=== PATIENT | male | born 1945 | race Caucasian/White ===

== ENCOUNTER → 2016-11-19 | Outpatient (CLI) | payer BC ==
[~2016-11-19] MED LIST: ACET-1256 PO; ALL180 OR; ASPEC81 PO; ATOR-26 PO; CALCIUM + D600 M1 PO; CLOT1CRE47 TOP; FLNIN NAE; GLC/500 PO; HYDR25TA4 PO; ISOS30TA3 PO; LISI-461 OR; METO1TAB69 PO; MULTI VITAMIMINERALS PO; NABU500T3 PO; NTRGSL/4 UT; PANT40TA PO
--- NOTE | 2016-11-19 12:08 | DIAGNOSTIC IMAGING REPORT ---
TWO VIEW CHEST CLINICAL HISTORY: Bronchitis. FINDINGS: PA and lateral chest radiographs are compared to study dated to. The cardiomediastinal silhouette is unremarkable. There is atherosclerotic calcification of the thoracic aorta. Chronic interstitial thickening and scattered calcified granulomas are similar to previous. No airspace consolidation or pleural effusion is seen. There is no pneumothorax. The skeletal structures are osteopenic. The bony thorax appears intact. IMPRESSION: No active disease in the chest. Electronically signed by: David Meredith M.D. 11/19/2016 12:07 PM Dictated Date/Time: 11/19/2016 12:06 PM
== END | disposition home or self-care (01) ==
LOC: C.RADBC 11:53
PROVIDERS: ATTEND Internal Medicine Geriatric Medicine
DX: J20.9 Acute bronchitis, unspecified (principal)

== ENCOUNTER → 2016-11-27 | Outpatient (CLI) | payer BC ==
[2016-11-27 14:36] LABS: BASO % 0.3 %; BASO ABS # 0.04 K/uL (0-0.2); COMPLETE YES; EOS % 2.7 %; HEMATOCRIT 45.9 % (42-52); LYMPH % 20.6 %; LYMPH ABS # 2.78 K/uL (1.2-3.4); MEAN CELL VOLUME 96.8 fL (80-100); MEAN CORPUSCULAR HEMOGLOBIN 33.5 pg (25-34); MEAN CORPUSCULAR HGB CONC 34.6 g/dl (32-36); MEAN PLATELET VOLUME 13.6 fL (7.4-10.4); MONO % 7.2 %; NEUT % 68.2 %; PLATELET COUNT 199 K/uL (130-400); RED BLOOD COUNT 4.74 M/uL (4.7-6.1); WHITE BLOOD COUNT 13.51 K/uL (4.8-10.8)
[2016-11-27 14:45] LABS: ESTIMATED AVERAGE GLUCOSE 123 mg/dl; HA1C FLAG Normal (Normal)
[2016-11-27 15:20] LABS: ALT/SGPT 31 U/L (12-78); BLOOD UREA NITROGEN 19 mg/dl (7-18); BUN/CREATININE RATIO 19.6 (10-20); CALCIUM 9.3 mg/dl (8.5-10.1); CARBON DIOXIDE 27 mmol/L (21-32); CHLORIDE 107 mmol/L (98-107); CREATININE 0.99 mg/dl (0.60-1.40); GLUCOSE 81 mg/dl (70-99); POTASSIUM 4.3 mmol/L (3.5-5.1); SODIUM 143 mmol/L (136-145)
[2016-11-27 15:23] LABS: ALB/GLOB RATIO 1.2 (0.9-2); ALKALINE PHOSPHATASE 61 U/L (45-117); AST/SGOT 25 U/L (15-37)
== END | disposition home or self-care (01) ==
LOC: C.LAB 13:31
PROVIDERS: ATTEND Internal Medicine Geriatric Medicine
DX: I10 Essential (primary) hypertension (principal); E11.9 Type 2 diabetes mellitus without complications; E78.5 Hyperlipidemia, unspecified; I25.10 Atherosclerotic heart disease of native coronary artery without angina pectoris

== ENCOUNTER → 2017-02-05 | Outpatient (CLI) | payer BC ==
[~2017-02-05] MED LIST changes: +METO100T44 PO; -METO1TAB69 PO
[2017-02-05 13:14] LABS: LYME DISEASE AB IGG NEG (NEG)
[2017-02-05 13:16] LABS: LYME DISEASE AB IGM EQUIVOCAL (NEG)
[2017-02-08 23:58] LABS: 18KDIGG BAND NONREACTIVE (NONREACTIVE); 23KDIGG BAND NONREACTIVE (NONREACTIVE); 23KDIGM BAND NONREACTIVE (NONREACTIVE); 28KDIGG BAND NONREACTIVE (NONREACTIVE); 30KDIGG BAND NONREACTIVE (NONREACTIVE); 39KDIGG BAND NONREACTIVE (NONREACTIVE); 39KDIGM BAND NONREACTIVE (NONREACTIVE); 41KDIGG BAND NONREACTIVE (NONREACTIVE); 41KDIGM BAND NONREACTIVE (NONREACTIVE); 45KDIGG BAND NONREACTIVE (NONREACTIVE); 58KDIGG BAND NONREACTIVE (NONREACTIVE); 66KDIGG BAND NONREACTIVE (NONREACTIVE); 93KDIGG BAND NONREACTIVE (NONREACTIVE)
== END | disposition home or self-care (01) ==
LOC: C.LABPBG 10:23
PROVIDERS: ATTEND Internal Medicine Geriatric Medicine
DX: E11.40 Type 2 diabetes mellitus with diabetic neuropathy, unspecified (principal); R20.0 Anesthesia of skin

== ENCOUNTER → 2017-06-12 | Outpatient (CLI) | payer BC ==
[~2017-06-12] MED LIST changes: -METO100T44 PO; +METO1TAB69 PO
[2017-06-12 17:33] LABS: BASO % 0.4 %; BASO ABS # 0.04 K/uL (0-0.2); COMPLETE YES; EOS % 5.1 %; HEMATOCRIT 45.2 % (42-52); IG% 0.6 %; LYMPH % 24.8 %; LYMPH ABS # 2.41 K/uL (1.2-3.4); MEAN CELL VOLUME 97.8 fL (80-100); MEAN CORPUSCULAR HEMOGLOBIN 33.8 pg (25-34); MEAN CORPUSCULAR HGB CONC 34.5 g/dl (32-36); MEAN PLATELET VOLUME 13.5 fL (7.4-10.4); MONO % 8.1 %; PLATELET COUNT 202 K/uL (130-400); RED BLOOD COUNT 4.62 M/uL (4.7-6.1); WHITE BLOOD COUNT 9.71 K/uL (4.8-10.8)
[2017-06-12 17:46] LABS: ALT/SGPT 35 U/L (12-78); AST/SGOT 41 U/L (15-37); BLOOD UREA NITROGEN 15 mg/dl (7-18); BUN/CREATININE RATIO 13.2 (10-20); CALCIUM 8.9 mg/dl (8.5-10.1); CARBON DIOXIDE 29 mmol/L (21-32); CHLORIDE 108 mmol/L (98-107); CHOLESTEROL 116 mg/dl (0-200); GLUCOSE 91 mg/dl (70-99); POTASSIUM 4.1 mmol/L (3.5-5.1); SODIUM 142 mmol/L (136-145)
[2017-06-12 17:49] LABS: ALB/GLOB RATIO 1.3 (0.9-2); ALKALINE PHOSPHATASE 62 U/L (45-117); CHOLESTEROL/HDL RATIO 2.5; HDL CHOLESTEROL 47 mg/dl; LDL CHOLESTEROL CALCULATED 45 mg/dl; TRIGLYCERIDES 120 mg/dl (0-150); VERY LOW DENSITY LIPOPROT CALC 24 mg/dl
[2017-06-13 06:57] LABS: ESTIMATED AVERAGE GLUCOSE 123 mg/dl; HA1C FLAG Normal (Normal)
== END | disposition home or self-care (01) ==
LOC: C.LABPBG 13:05
PROVIDERS: ATTEND Internal Medicine Geriatric Medicine
DX: I10 Essential (primary) hypertension (principal); E11.9 Type 2 diabetes mellitus without complications; I25.10 Atherosclerotic heart disease of native coronary artery without angina pectoris; E78.5 Hyperlipidemia, unspecified

== ENCOUNTER → 2017-11-22 | Outpatient (CLI) | payer BC ==
[~2017-11-22] MED LIST changes: +METO100T44 PO; -METO1TAB69 PO
[2017-11-22 12:08] LABS: BASO % 0.2 %; BASO ABS # 0.03 K/uL (0-0.2); EOS % 2.3 %; EOS ABS # 0.28 K/uL (0-0.5); HEMATOCRIT 45.3 % (42-52); HEMOGLOBIN 15.6 g/dL (14.0-18.0); IG# 0.08 K/uL (0.00-0.02); LYMPH % 18.2 %; LYMPH ABS # 2.24 K/uL (1.2-3.4); MEAN CELL VOLUME 99.6 fL (80-100); MEAN CORPUSCULAR HEMOGLOBIN 34.3 pg (25-34); MEAN CORPUSCULAR HGB CONC 34.4 g/dl (32-36); MEAN PLATELET VOLUME 13.2 fL (7.4-10.4); MONO % 7.1 %; MONO ABS # 0.87 K/uL (0.11-0.59); NEUT % 71.5 %; NEUT ABS # 8.79 K/uL (1.4-6.5); PLATELET COUNT 238 K/uL (130-400); RED CELL DISTRIBUTION WIDTH CV 15.4 % (11.5-14.5); RED CELL DISTRIBUTION WIDTH SD 55.5 fL (36.4-46.3); WHITE BLOOD COUNT 12.29 K/uL (4.8-10.8)
[2017-11-22 12:31] LABS: HEMOGLOBIN A1C 5.9 % (4.5-5.6)
[2017-11-22 12:34] LABS: ALBUMIN 3.4 gm/dl (3.4-5.0); ALT/SGPT 26 U/L (12-78); AST/SGOT 24 U/L (15-37); BLOOD UREA NITROGEN 16 mg/dl (7-18); CALCIUM 9.1 mg/dl (8.5-10.1); CARBON DIOXIDE 26 mmol/L (21-32); GLUCOSE 138 mg/dl (70-99); POTASSIUM 3.9 mmol/L (3.5-5.1); SODIUM 139 mmol/L (136-145)
[2017-11-22 12:45] LABS: ALKALINE PHOSPHATASE 68 U/L (45-117); TOTAL PROTEIN 6.9 gm/dl (6.4-8.2)
== END | disposition home or self-care (01) ==
LOC: C.LABPBG 08:57
PROVIDERS: ATTEND Internal Medicine Geriatric Medicine
DX: E11.9 Type 2 diabetes mellitus without complications (principal); E78.5 Hyperlipidemia, unspecified; I25.10 Atherosclerotic heart disease of native coronary artery without angina pectoris; E55.9 Vitamin D deficiency, unspecified; M25.561 Pain in right knee; M25.562 Pain in left knee; M47.819 Spondylosis without myelopathy or radiculopathy, site unspecified; Z79.1 Long term (current) use of non-steroidal anti-inflammatories (NSAID)

== ENCOUNTER → 2018-05-13 | Outpatient (CLI) | payer BC ==
--- NOTE | 2018-05-13 10:01 | DIAGNOSTIC IMAGING REPORT ---
CHEST 2 VIEWS ROUTINE CLINICAL HISTORY: Bronchitis. COMPARISON STUDY: Chest radiograph November 19, 2016. FINDINGS: Lung volumes are normal. No pneumothorax or pleural effusion is noted. There is no consolidation or evidence for pulmonary edema. A nodular density overlying the anterior left fourth rib and left midlung is unchanged from earlier exams. This is benign given stability. IMPRESSION: No acute cardiopulmonary findings. Electronically signed by: Tay James M.D. 05/13/2018 9:59 AM Dictated Date/Time: 05/13/2018 9:48 AM
[2018-05-13 12:45] LABS: BASO % 0.4 %; BASO ABS # 0.06 K/uL (0-0.2); EOS % 3.8 %; EOS ABS # 0.53 K/uL (0-0.5); HEMATOCRIT 45.4 % (42-52); HEMOGLOBIN 15.2 g/dL (14.0-18.0); IG# 0.13 K/uL (0.00-0.02); LYMPH % 12.2 %; LYMPH ABS # 1.68 K/uL (1.2-3.4); MEAN CELL VOLUME 97.6 fL (80-100); MEAN CORPUSCULAR HEMOGLOBIN 32.7 pg (25-34); MEAN CORPUSCULAR HGB CONC 33.5 g/dl (32-36); MEAN PLATELET VOLUME 12.7 fL (7.4-10.4); MONO % 7.1 %; MONO ABS # 0.98 K/uL (0.11-0.59); NEUT % 75.6 %; NEUT ABS # 10.42 K/uL (1.4-6.5); PLATELET COUNT 308 K/uL (130-400); RED CELL DISTRIBUTION WIDTH SD 52.7 fL (36.4-46.3)
[2018-05-13 13:04] LABS: HEMOGLOBIN A1C 6.2 % (4.5-5.6)
[2018-05-13 13:14] LABS: ALBUMIN 3.5 gm/dl (3.4-5.0); ALKALINE PHOSPHATASE 72 U/L (45-117); ALT/SGPT 28 U/L (12-78); AST/SGOT 27 U/L (15-37); BLOOD UREA NITROGEN 16 mg/dl (7-18); CALCIUM 9.1 mg/dl (8.5-10.1); CARBON DIOXIDE 27 mmol/L (21-32); CHOLESTEROL 99 mg/dl (0-200); CREATININE 0.92 mg/dl (0.60-1.40); GLUCOSE 102 mg/dl (70-99); LDL CHOLESTEROL CALCULATED 48 mg/dl; POTASSIUM 4.1 mmol/L (3.5-5.1); SODIUM 143 mmol/L (136-145); TOTAL PROTEIN 6.9 gm/dl (6.4-8.2)
== END | disposition home or self-care (01) ==
LOC: C.RADBC 09:26
PROVIDERS: ATTEND Internal Medicine Rheumatology
DX: E11.9 Type 2 diabetes mellitus without complications (principal); E78.5 Hyperlipidemia, unspecified; I10 Essential (primary) hypertension; I25.10 Atherosclerotic heart disease of native coronary artery without angina pectoris; M47.819 Spondylosis without myelopathy or radiculopathy, site unspecified; M17.10 Unilateral primary osteoarthritis, unspecified knee; Z79.1 Long term (current) use of non-steroidal anti-inflammatories (NSAID); J40 Bronchitis, not specified as acute or chronic

== ENCOUNTER 2019-01-06 14:59 | Inpatient (IN) ==
[2019-01-06] MEDS ORDERED: SODIUM CHLORIDE 0.9% 1000ML 1,000 ML IV ONE (15:41)
[2019-01-06] MEDS ORDERED: MECLIZINE HCL 25 MG TAB PO STA (15:41)
[2019-01-06] MEDS ORDERED: ACETAMINOPHEN 500 MG TAB PO STA (15:41)
--- NOTE | 2019-01-06 16:02 | XRay Report ---
SINGLE VIEW CHEST CLINICAL HISTORY: Dizziness. FINDINGS: An AP, portable, upright chest radiograph is compared to study dated 08/26/2018. The examina tion is degraded by portable technique and patient rotation. The cardiomediastinal silhouette is unr emarkable, noting atherosclerotic calcification of the thoracic aorta. There is mild bibasilar atelec tasis. The lungs and pleural spaces are otherwise clear. No pneumothorax is seen. The skeletal struct ures are osteopenic. The bony thorax is grossly intact. There is chronic widening at the right acromi oclavicular joint. Arthritic change is seen in the shoulders. IMPRESSION: No active disease in the chest. Electronically signed by: David Meredith M.D. 01/06/2019 4:01 PM
[2019-01-06 16:18] LABS: iSTAT Creatinine 0.9 mg/dl (0.6-1.3); iSTAT Ionized Calcium 1.22 mmol/l (1.12-1.32); iSTAT Potassium 3.8 mEq/L (3.3-5.0)
[2019-01-06 16:19] LABS: Basophils # (auto) 0.04 K/uL (0-0.2); Basophils % (auto) 0.2 %; Eosinophils # (auto) 0.22 K/uL (0-0.5); Eosinophils % (auto) 1.3 %; Hematocrit (blood only) 49.6 % (42-52); Hemoglobin 16.8 g/dL (14.0-18.0); Immature Granulocytes # (auto) 0.06 K/uL (0.00-0.02); Immature Granulocytes % (auto) 0.4 %; Lymphocytes # (auto) 1.67 K/uL (1.2-3.4); Lymphocytes % (auto) 9.8 %; Mean Corpuscular Hgb Conc 33.9 g/dL (32-36); Mean Corpuscular Volume 93.8 fL (80-100); Mean Platelet Volume 13.2 fL (7.4-10.4); Monocytes # (auto) 0.84 K/uL (0.11-0.59); Monocytes % (auto) 4.9 %; Neutrophils # (auto) 14.27 K/uL (1.4-6.5); Neutrophils % (auto) 83.4 %; Platelet Count 261 K/uL (130-400); RDW Coefficient of Variation 15.1 % (11.5-14.5); RDW Standard Deviation 51.3 fL (36.4-46.3); Red Blood Count 5.29 M/uL (4.7-6.1)
[2019-01-06 16:26] LABS: INR 1.2 (0.9-1.1); Prothrombin Time 11.7 Seconds (9.0-12.0)
[2019-01-06 16:28] LABS: Alanine Aminotransferase 28 U/L (12-78); Albumin Level 3.8 gm/dl (3.4-5.0); Aspartate Aminotransferase 27 U/L (15-37); BUN Creatinine Ratio 18.6 (10-20); Blood Urea Nitrogen 19 mg/dl (7-18); Calcium 9.2 mg/dl (8.5-10.1); Carbon Dioxide 27 mmol/L (21-32); Chloride 110 mmol/L (98-107); Creatinine Clr Calc Pharmacy 62.4 ml/min; Est GFR (African American) 86.8; Est GFR (Non-African American) 74.9; Glucose 111 mg/dl (70-99); Magnesium 1.9 mg/dl (1.8-2.4); Potassium 3.9 mmol/L (3.5-5.1); Sodium 144 mmol/L (136-145)
[2019-01-06 16:33] LABS: Albumin Globulin Ratio 1.2 (0.9-2); Alkaline Phosphatase 75 U/L (45-117); Bilirubin,Total 1.3 mg/dl (0.2-1); Creatine Kinase MB < 1.0 ng/ml (0.5-3.6); Globulin 3.1 gm/dl (2.5-4.0); Total Protein 6.9 gm/dl (6.4-8.2); Troponin I 0.016 ng/ml (0-0.045)
[2019-01-06] MEDS ORDERED: OPTIRAY 320 125ml IV PRN (16:40)
--- NOTE | 2019-01-06 16:56 | CT Scan Report ---
CT OF THE HEAD WITHOUT CONTRAST CLINICAL HISTORY: Stroke evaluation. Headache. COMPARISON STUDY: No previous studies for comparison. TECHNIQUE: Helical axial images of the head were obtained without IV contrast. Automated exposure con trol was utilized for the study. A dose lowering technique was utilized adhering to the principles o f ALARA. FINDINGS: No acute intracranial hemorrhage, midline shift or mass effect is present. Ventricular syst em is normal for age. Basilar cisterns are patent. There are no extra-axial collections. White matter hypodensity suggests small vessel disease. There is mild bilateral basal ganglia calcification. Ther e are no findings to suggest acute dural sinus thrombosis or acute territorial infarct. There is no c alvarial fracture. 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 There are po stoperative findings within the sinuses. There is mild sinus mucosal thickening. There is no evidence for acute sinusitis. IMPRESSION: No acute intracranial findings. Electronically signed by: Tay James M.D. 01/06/2019 4:55 PM
--- NOTE | 2019-01-06 17:01 | CT Scan Report ---
CT ANGIOGRAPHY OF THE NECK WITH CONTRAST CLINICAL HISTORY: Headache. COMPARISON STUDY: No previous studies for comparison. Technique: CT angiography of the carotid and vertebral arteries was obtained using Traitify 320 IV and 3D reconstruction on an independent workstation. NASCET criteria was utilized. Automated exposure c ontrol was utilized for the study. A dose lowering technique was utilized adhering to the principles of ALARA. CT DOSE: 1037.51 mGy.cm Findings: The left vertebral artery is dominant. There is mild plaque within the left vertebral arter y without evidence for stenosis. There is no dissection within this vessel. The right vertebral arter y is somewhat diminutive. There is extensive atherosclerotic plaque within the proximal right vertebr al artery with suspected severe stenosis. There is mild plaque within the bilateral common carotid an d internal carotid arteries without hemodynamically significant stenosis. There is at least moderate stenosis at the origin of the left external carotid artery. The CTA of the head will be reported sepa rately. There is no cervical lymphadenopathy. Lung apices are clear. There is no cervical spine fract ure. IMPRESSION: 1. No significant stenosis within the bilateral common carotid or internal carotid arteries. 2. Moderate stenosis of the proximal left external carotid artery. 3. Dominant, patent left vertebral artery. Severe stenosis at the origin of the right vertebral arter y. Electronically signed by: Tay James M.D. 01/06/2019 5:00 PM
--- NOTE | 2019-01-06 17:07 | CT Scan Report ---
CT ANGIOGRAM OF THE BRAIN CLINICAL HISTORY: Headache. COMPARISON STUDY: Unenhanced CT of the brain performed concurrently on 01/06/2019. TECHNIQUE: Following the IV administration of 118 cc of Optiray 320, CT angiogram of the brain was pe rformed from the skull base to the vertex. Images are reviewed in the axial, sagittal, and coronal pl anes. 3-D MIPS images are created and assessed. IV contrast was administered without complication. A dose lowering technique was utilized adhering to the principles of ALARA. FINDINGS: Brain parenchyma: There is age-related involutional change noting mild subcortical and periventricula r microangiopathic disease. There is no hemorrhage, mass effect, or evidence of acute territorial isc hemia by CT criteria. There is no evidence of enhancing mass lesion on the angiogram phase images. No extra-axial fluid collection is seen. Cruz-white matter differentiation is preserved. Ventricles, sulci, and cisterns: Prominent secondary to involutional change. CT angiogram of the brain: There is atherosclerotic calcification of the cavernous carotid and verteb ral arteries. The [place] is developmentally complete. The internal carotid arteries are wi oneil patent, as are the anterior and middle cerebral arteries. The vertebrobasilar system and posteri or cerebral arteries are widely patent. The left vertebral artery is dominant. There is no aneurysm, high-grade stenosis, or focal vessel cutoff identified throughout the intracranial circulation. Dural sinuses: Clear as visualized. Orbits: The bony orbits are intact. The orbital contents are normal as visualized, noting bilateral o cular lens implants. Sinuses and mastoids: There is evidence of previous paranasal sinus surgery. Trace mucosal thickening is noted in the ethmoid resection cavity and the frontal sinuses. There is also trace mucosal thicke venita in the right maxillary antrum. Minimal fluid is seen within the right sphenoid sinus. There is a trace left mastoid effusion. The right mastoid air cells are well pneumatized. 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 No acute calvarial ab normality is seen. IMPRESSION: 1. There is no hemorrhage, mass effect, or evidence of acute territorial ischemia by CT criteria on t his angiographic phase examination. 2. Unremarkable CT angiogram of the brain. Electronically signed by: David Meredith M.D. 01/06/2019 5:06 PM
[2019-01-06] MEDS ORDERED: DEXAMETHASONE **PF** INJ 10 MG/ML VIAL IV ONE (17:24)
[2019-01-06] MEDS ORDERED: PROCHLORPERAZINE 5 MG in SYRINGE 4 ML IV ONE (17:24)
[2019-01-06] MEDS ORDERED: PROCHLORPERAZINE 5 MG/ML 2 ML VIAL ONE (17:31)
[2019-01-06] MEDS ORDERED: XYLOCAINE 1%/SOD BICARB 20 ML VIAL INFIL ONE (17:42)
[2019-01-06] MEDS ORDERED: VANCOMYCIN CONSULT ACTIVE PRN ×2 (17:52→20:09)
[2019-01-06] MEDS ORDERED: cefTRIAXone SODIUM 2,000 MG in DEXTROSE 5% 50 ML IV STA (17:52)
[2019-01-06] MEDS ORDERED: VANCOMYCIN HCL 1,000 MG/270 ML BAG IV STA (17:52)
--- NOTE | 2019-01-06 18:09 | Emergency Department Note ---
ED Visit Note I was asked by Dr. Bartholomew to perform lumbar puncture of this patient. Please see his dictation for full HPI, diagnostics and ED course. Lumbar Puncture Indication: Confusion, headache. Verbal consent was obtained after the risks and benefits were explained, including but not limited to headache, bleeding/clotting, scarring, infection, pain, and bone/joint/nerve damage. At this time, the risks of the procedure are less than the risks of NOT performing the procedure. A time out was taken and the correct patient and site identified. The patient was placed in the sitting position and the back was prepped with betadine and draped in the standard fashion. The L3 intervertebral space was identified, anesthetized locally with 1% lidocaine without epinephrine, and the spinal needle was inserted through the skin with the bevel parallel to the dural fibers. The needle was carefully advanced into the lumbar cistern and 4 tubes of clear CSF was obtained. The stylet was replaced and the needle was removed. A bandaid was placed and the patient was placed in the supine position. The patient tolerated the procedure well and there were no complications. : Headache Qualifiers: Headache type: unspecified Headache chronicity pattern: unspecified pattern Intractability: not intractable Qualified Code(s): R51 - Headache Altered mental status Qualifiers: Altered mental status type: unspecified Qualified Code(s): R41.82 - Altered mental status, unspecified
[2019-01-06] MEDS ORDERED: MAGNESIUM SULFATE / D5W 1 GM/100 ML BAG IV ONE (18:22)
[2019-01-06 18:28] LABS: CSF Chemistry Tube # 1
[2019-01-06] MEDS ORDERED: DEXTROSE 5% IV ONE (18:45)
[2019-01-06] MEDS ORDERED: ACYCLOVIR SOD IV ONE (18:45)
[2019-01-06 18:51] LABS: Appearance CSF CLEAR; CSF Count Tube # 3; Color CSF COLORLESS; Red Blood Cell CSF (A) 0 /uL (0-); Red Blood Cell CSF (B) 0 /uL (0-); White Blood Cell CSF (B) 0 /uL (0-5)
--- NOTE | 2019-01-06 18:51 | History & Physical Report ---
Date of Service January 06, 2019 Assessment & Plan (1) Headache: Concerning in the setting of n/v and mild AMS with elevated WBC LP pending Lyme pending Will continue decadron, vanco/rocephin/acyclovir until resulted noted CT head, CTA head/neck WNL Monitor (2) HTN (hypertension): continue home meds (3) Heart disease: continue home meds Stent x1 placed 10-12 yrs ago EKG with incomplete RBBB, seen prior (4) GERD (gastroesophageal reflux disease): continue home meds (5) Hyperlipidemia: continue home meds (6) DM type 2 (diabetes mellitus, type 2): holding metformin SSI PRN A1c pending (7) Osteoarthritis: Nabumetone riley Tramadol PRN, states rarely takes this (8) DVT prophylaxis: SCDs History of Present Illness Primary Care Provider: Braden Talbot MD 73 y/o M c/o headache. Pt started to have a frontal headache on Saturday afternoon. He also noted neck stiffness, but no pain. Headache worsened yesterday and pt started to have n/v. He was unable to tolerate any PO intake. He was dizzy and unable to keep his balance well. He was seen by PCP today and noted that he was having some chest tightness as well. Pt has never had a headache like this in the past. He has no hx of neck pain. states that pt is a bit confused at times as well. Pt denies fever, SOB, abd pain, c/d, LE pain or swelling. Pt states he is not having any vision changes or dizziness while lying flat on his back. He is no longer with nausea. An LP was done in the ED and ED physician reports it as clear. Pt was started on menigitis abx and decadron. His biggest concern at present is back pain from lying flat s/p LP. He states this is not a new issue. Allergies Allergy/AdvReac Type Severity Reaction Status Date / Time No Known Allergies Allergy Unknown Verified 01/06/19 18:02 Home Medications Home Medications Medication Instructions Recorded Confirmed Type aspirin 81 mg PO QAM 01/06/19 01/06/19 History atorvastatin 80 mg PO QAM 01/06/19 01/06/19 History calcium carbonate-vitamin D3 1 tab PO BID 01/06/19 01/06/19 History [Caltrate 600 + D] fexofenadine 180 mg PO QAM 01/06/19 01/06/19 History fluticasone propionate [Flonase 2 spray INTRANASAL DAILY PRN 01/06/19 01/06/19 History Allergy Relief] isosorbide mononitrate 30 mg PO QAM 01/06/19 01/06/19 History lisinopril 20 mg PO HS 01/06/19 01/06/19 History metformin 500 mg PO BIDM 01/06/19 01/06/19 History metoprolol succinate 100 mg PO QAM 01/06/19 01/06/19 History ejurpbxy-yhm-IK-lycopen-lutein 1 tab PO QAM 01/06/19 01/06/19 History [Centrum Silver Men] nabumetone 500 mg PO QAM 01/06/19 01/06/19 History nitroglycerin [Nitrostat] 0.4 mg SUBLINGUAL UD 01/06/19 01/06/19 History pantoprazole 40 mg PO QAM 01/06/19 01/06/19 History tramadol 50 mg PO DAILY PRN 01/06/19 01/06/19 History Past Med/Surg History Medical History Family history non-contributory Surgical History Hx of heart artery stent (Chronic) Family History Uncle Heart disease Other Family history non-contributory Social History Preferred Language: Croatian Feels Safe at Home: Yes Smoking Status: Never smoker Hx Alcohol Use: No Hx Substance Use: No Review of Systems Pertinent positives and negatives reviewed in HPI--all others negative Physical Exam Vital Signs (Past 24 Hours): Last Vital Signs Temp 36.4 C L 01/06/19 15:02 Pulse 70 01/06/19 17:33 Resp 9 L 01/06/19 17:33 BP 172/77 H 01/06/19 17:09 Pulse Ox 95 01/06/19 17:10 Constitutional: WD/WN, vitals as above Eyes: normal visual de [place] by confrontation and + anicteric sclerae Neck: normal visual inspection and trachea midline Respiratory: normal respiratory effort, lungs clear to auscultation Cardiovascular: Rate/Rhythm: regular rate and regular rhythm Gastrointestinal (Abdomen): Inspection/Auscultation: abdomen not distended Percussion/Palpation: abdomen soft; abdomen nontender Musculoskeletal: Head/Neck/Chest: normocephalic and head atraumatic negative for edema, peripheral pulses intact cervical ROM is WNL in all planes, able to touch chin to chest Skin: no rashes, warm and dry Neurologic: awake; not confused Speech / Cognition: normal speech Psychiatric: A+Ox3, euthymic affect Results & Data Diagnostic Findings CXR: neg for acute CT head: neg for acute CTA head/neck: neg for acute ECG Rhythm: sinus bradycardia Additional Comments: incomplete RBBB, seen prior Code Status & VTE Plan Code Status Full code VTE Prophylaxis Plan VTE Prophylaxis will be ordered: Yes (1) Headache Headache chronicity pattern: unspecified pattern Headache type: unspecified Intractability: not intractable Qualified Code(s): R51 - Headache
[2019-01-06 18:52] LABS: White Blood Cell CSF (A) 0 /uL (0-5)
[2019-01-06 18:59] LABS: CSF Glucose 63 mg/dl (40-70); Total Protein CSF 54.5 mg/dl (15-45)
--- NOTE | 2019-01-06 19:42 | Emergency Department Note ---
Entered by Shantelle Kaur acting as a scribe for Memo Bartholomew MD History of Present Illness General Chief complaint: Nausea Stated complaint: REF BY JIMENA MURRAY, CHEST HEAVINESS, NAUSEA Time Seen by Provider: 01/06/19 15:34 Source: patient Mode of arrival: ambulatory Limitations: no limitations History of Present Illness Provider complaint: Headache Onset (ago): day(s) 2 Location: head Severity: moderate Pain Consistency: + constant Maximum Pain Intensity: 10 Associated symptoms: + denies other symptoms and + other (dizziness) Patient is a 73 year old male presenting to the ED with headache beginning x2 days ago. Patient states he was watching golf on the television when his headache came on a sudden. Headache is moderate in severity, constant since onset and located in the back of the head. Pain worsens with sitting up and standing. He notes that he is having associated dizziness that has been present since yesterday. Dizziness occurs both with movement and remaining stationary. He denies any injury or trauma to the head. Patient is on baby aspirin, but not on any blood thinners. He notes he is currently dizzy, and nausea, but denies any current vomiting, CP, abd pain or any other sx. notes patient had x2 stents placed about x10 years ago at [facility]. Home Medications Home Medications Medication Instructions Recorded Confirmed Type aspirin 81 mg PO QAM 01/06/19 01/06/19 History atorvastatin 80 mg PO QAM 01/06/19 01/06/19 History calcium carbonate-vitamin D3 1 tab PO BID 01/06/19 01/06/19 History [Caltrate 600 + D] fexofenadine 180 mg PO QAM 01/06/19 01/06/19 History fluticasone propionate [Flonase 2 spray INTRANASAL DAILY PRN 01/06/19 01/06/19 History Allergy Relief] isosorbide mononitrate 30 mg PO QAM 01/06/19 01/06/19 History lisinopril 20 mg PO HS 01/06/19 01/06/19 History metformin 500 mg PO BIDM 01/06/19 01/06/19 History metoprolol succinate 100 mg PO QAM 01/06/19 01/06/19 History bltlrtcv-fcq-IZ-lycopen-lutein 1 tab PO QAM 01/06/19 01/06/19 History [Centrum Silver Men] nabumetone 500 mg PO QAM 01/06/19 01/06/19 History nitroglycerin [Nitrostat] 0.4 mg SUBLINGUAL UD 01/06/19 01/06/19 History pantoprazole 40 mg PO QAM 01/06/19 01/06/19 History tramadol 50 mg PO DAILY PRN 01/06/19 01/06/19 History Allergies Allergy/AdvReac Type Severity Reaction Status Date / Time No Known Allergies Allergy Unknown Verified 01/06/19 18:02 Past Med/Surg History Medical History Family history non-contributory Surgical History Hx of heart artery stent (Chronic) Social History Preferred Language: Australian Feels Safe at Home: Yes Smoking Status: Never smoker Hx Alcohol Use: No Hx Substance Use: No Review of Systems See HPI for pertinent positives & negatives. and A total of 10 systems reviewed and were otherwise negative Physical Exam Vital Signs Vital Signs - 24 hr 01/06/19 15:02 01/06/19 15:24 01/06/19 15:30 Temperature 36.4 C L Temperature Source Oral Sepsis Recent Fever Within 48 Hours No Sepsis New/Unexplained Change in Mental Status No Sepsis Action Taken by Nursing No Action Required Pulse Rate 56 L 55 L 57 L Pulse Rate [Left Finger] Pulse Rate from SpO2 Sensor Pulse Rhythm [Left Finger] Pulse Strength [Left Finger] Respiratory Rate 18 26 H 21 Respiratory Effort / Characteristics Non-Labored Spontaneous Respiratory Depth Normal Respiratory Pattern Regular Blood Pressure 163/75 H Blood Pressure [Left Arm] Blood Pressure Mean 104 Blood Pressure Mean [Left Arm] Blood Pressure Position Sitting Pulse Oximetry 98 Oxygen Delivery Method Room Air 01/06/19 15:40 01/06/19 15:50 01/06/19 16:00 Temperature Temperature Source Sepsis Recent Fever Within 48 Hours Sepsis New/Unexplained Change in Mental Status Sepsis Action Taken by Nursing Pulse Rate 57 L 58 L 58 L Pulse Rate [Left Finger] Pulse Rate from SpO2 Sensor Pulse Rhythm [Left Finger] Pulse Strength [Left Finger] Respiratory Rate 16 22 22 Respiratory Effort / Characteristics Respiratory Depth Respiratory Pattern Blood Pressure Blood Pressure [Left Arm] Blood Pressure Mean Blood Pressure Mean [Left Arm] Blood Pressure Position Pulse Oximetry Oxygen Delivery Method 01/06/19 16:10 01/06/19 16:40 01/06/19 16:50 Temperature Temperature Source Sepsis Recent Fever Within 48 Hours Sepsis New/Unexplained Change in Mental Status Sepsis Action Taken by Nursing Pulse Rate 59 L 88 58 L Pulse Rate [Left Finger] Pulse Rate from SpO2 Sensor Pulse Rhythm [Left Finger] Pulse Strength [Left Finger] Respiratory Rate 17 20 Respiratory Effort / Characteristics Respiratory Depth Respiratory Pattern Blood Pressure Blood Pressure [Left Arm] Blood Pressure Mean Blood Pressure Mean [Left Arm] Blood Pressure Position Pulse Oximetry Oxygen Delivery Method 01/06/19 17:00 01/06/19 17:08 01/06/19 17:09 Temperature Temperature Source Sepsis Recent Fever Within 48 Hours Sepsis New/Unexplained Change in Mental Status Sepsis Action Taken by Nursing Pulse Rate 56 L 54 L Pulse Rate [Left Finger] 57 L Pulse Rate from SpO2 Sensor 58 L Pulse Rhythm [Left Finger] Regular Pulse Strength [Left Finger] Normal Respiratory Rate 23 19 18 Respiratory Effort / Characteristics Non-Labored Spontaneous Respiratory Depth Normal Respiratory Pattern Regular Blood Pressure 172/77 H Blood Pressure [Left Arm] 172/77 H Blood Pressure Mean 108 Blood Pressure Mean [Left Arm] 108 Blood Pressure Position Pulse Oximetry 97 97 Oxygen Delivery Method Room Air 01/06/19 17:10 01/06/19 17:33 Temperature Temperature Source Sepsis Recent Fever Within 48 Hours Sepsis New/Unexplained Change in Mental Status Sepsis Action Taken by Nursing Pulse Rate 54 L 70 Pulse Rate [Left Finger] Pulse Rate from SpO2 Sensor 54 L Pulse Rhythm [Left Finger] Pulse Strength [Left Finger] Respiratory Rate 17 9 L Respiratory Effort / Characteristics Respiratory Depth Respiratory Pattern Blood Pressure Blood Pressure [Left Arm] Blood Pressure Mean Blood Pressure Mean [Left Arm] Blood Pressure Position Pulse Oximetry 95 Oxygen Delivery Method GENERAL: Patient is a healthy-appearing well-nourished HEAD: Normocephalic atraumatic EYES: Ocular movements intact pupils equal and react to light OROPHARYNX mucous membranes are moist no exudates present no erythema or edema present NECK: Supple no nuchal rigidity CHEST: Good equal expansion LUNGS: Clear and equal to auscultation CARDIAC: Normal S1 and S2 ABDOMEN: Soft nontender no guarding BACK: No CVA tenderness EXTREMITIES: No pain upon palpation normal muscle strength in all groups no clubbing cyanosis or edema NEURO: Patient is following commands is answering questions appropriately. Alert and oriented x3 Cranial Nerves 2-12 grossly intact Course 1540: Past medical records reviewed. The patient was evaluated in room A09B, and a complete history and physical examination were performed. 1726: Reassessed patient. Patient states he is having dizziness in his neck, but it is "not dizziness, but pain" 1800: In to perform LP. 1810: Discussed patient case with Dr. Sousa Administered Medications Vancomycin HCl (Vancomycin Hcl) 1,000 mg in 270 mls @ 125 mls/hr IV NOW STA Stop: 01/06/19 20:01 Last Admin: 01/06/19 19:12 Dose: 125 mls/hr Documented by: [id number] Acyclovir Sodium 660 mg/ (Dextrose) 113.2 mls @ 100 mls/hr IV ONE ONE Stop: 01/06/19 19:52 Last Admin: 01/06/19 19:13 Dose: 100 mls/hr Documented by: [id number] Ioversol (Optiray 320 125ml) 118 ml IV ONCE PRN PRN Reason: Interaction Checking Stop: 01/10/19 16:39 Last Admin: 01/06/19 16:41 Dose: 118 ml Documented by: [id number] Discontinued Medications Acetaminophen (Tylenol) 1,000 mg PO NOW STA Stop: 01/06/19 15:42 Last Admin: 01/06/19 16:15 Dose: 1,000 mg Documented by: [id number] Dexamethasone Sodium Phosphate (Decadron Pf) 10 mg IV NOW ONE Stop: 01/06/19 17:25 Last Admin: 01/06/19 17:35 Dose: 10 mg Documented by: [id number] Sodium Chloride (Nss 1000ml) 1,000 mls @ 999 mls/hr IV .Q1H1M ONE Stop: 01/06/19 16:41 Last Infusion: 01/06/19 17:30 Dose: 0 mls/hr Documented by: [id number] Admin: 01/06/19 16:15 Dose: 999 mls/hr Documented by: [id number] Prochlorperazine 5 mg/ Syringe 5 mls @ 5 mls/min IV ONE ONE Stop: 01/06/19 17:25 Last Admin: 01/06/19 17:35 Dose: 5 mls/min Documented by: [id number] Ceftriaxone Sodium 2,000 mg/ (Dextrose) 70 mls @ 100 mls/hr IV NOW STA Stop: 01/06/19 18:33 Last Admin: 01/06/19 19:12 Dose: 100 mls/hr Documented by: [id number] Magnesium Sulfate/Dextrose (Magnesium Sulfate / D5w) 1 gm in 100 mls @ 100 ml s/hr IV ONE ONE Stop: 01/06/19 19:21 Last Admin: 01/06/19 19:12 Dose: 100 mls/hr Documented by: [id number] Lidocaine HCl (Buffered Lidocaine 1%) 20 ml INFIL NOW ONE Stop: 01/06/19 17:43 Last Admin: 01/06/19 18:47 Dose: 20 ml Documented by: [id number] Meclizine HCl (Antivert) 25 mg PO NOW STA Stop: 01/06/19 15:42 Last Admin: 01/06/19 16:15 Dose: 25 mg Documented by: [id number] Prochlorperazine (Compazine) Confirm Administered Dose 10 mg .ROUTE .STK-MED ONE Stop: 01/06/19 17:32 Last Admin: 01/06/19 18:47 Dose: Not Given Documented by: [id number] Medical Decision Making Differential Diagnosis Differential diagnosis: Etiologies such as acute intracranial bleed, trauma, meningitis, encephalitis, increased intracranial pressure, mass or mass effect, facial or dental infection, temporal arteritis, CVA, TIA, acute hypertensive emergency, sinusitis, carbon monoxide exposure. Medical Records Attestation: I reviewed the patient's medical records. Home Medications Current Medication List: was personally reviewed by me Laboratory Data Attestation: I reviewed the patient's lab results. Result diagrams: 01/06/19 16:01 01/06/19 16:01 Lab Results 01/06/19 01/06/19 01/06/19 Range/Units 15:59 16:01 16:01 WBC 17.10 H (4.8-10.8) K/uL RBC 5.29 (4.7-6.1) M/uL Hgb 16.8 (14.0-18.0) g/dL POC Hgb (14.0-18.0) g/dl Hct 49.6 (42-52) % POC Hct (42-52) % MCV 93.8 (80-100) fL MCH 31.8 (25-34) pg MCHC 33.9 (32-36) g/dL RDW Std Deviation 51.3 H (36.4-46.3) fL RDW Coeff of Winifred 15.1 H (11.5-14.5) % Plt Count 261 (130-400) K/uL MPV 13.2 H (7.4-10.4) fL Immature Gran % (Auto) 0.4 % Neut % (Auto) 83.4 % Lymph % (Auto) 9.8 % [place] % (Auto) 4.9 % Eos % (Auto) 1.3 % Baso % (Auto) 0.2 % Immature Gran # (Auto) 0.06 H (0.00-0.02) K/uL Neut # (Auto) 14.27 H (1.4-6.5) K/uL Lymph # (Auto) 1.67 (1.2-3.4) K/uL [place] # (Auto) 0.84 H (0.11-0.59) K/uL Eos # (Auto) 0.22 (0-0.5) K/uL Baso # (Auto) 0.04 (0-0.2) K/uL PT 11.7 (9.0-12.0) Seconds INR 1.2 H (0.9-1.1) APTT 26.0 (21.0-31.0) Seconds PTT Ratio 1.0 POC Sodium (135-144) mEq/L Sodium (136-145) mmol/L POC Potassium (3.3-5.0) mEq/L Potassium (3.5-5.1) mmol/L POC Chloride (101-112) mEq/L Chloride (98-107) mmol/L Carbon Dioxide (21-32) mmol/L POC Total CO2 (24-31) mEq/l Anion Gap (3-11) POC Anion Gap (16-25) mmol/L POC BUN (7-18) mg/dl BUN (7-18) mg/dl Creatinine (0.6-1.4) mg/dl POC Creatinine (0.6-1.3) mg/dl Est Cr Clr Drug Dosing ml/min Est GFR ( Amer) Est GFR (Non-Af Amer) BUN/Creatinine Ratio (10-20) Glucose (70-99) mg/dl POC Glucose 105 H (70-99) POC Glucose (other) (70-99) mg/dl Calcium (8.5-10.1) mg/dl POC Ioniz Calcium Shane (1.12-1.32) mmol/l Magnesium (1.8-2.4) mg/dl Total Bilirubin (0.2-1) mg/dl AST (15-37) U/L ALT (12-78) U/L Alkaline Phosphatase (45-117) U/L CK-MB (CK-2) (0.5-3.6) ng/ml Troponin I (0-0.045) ng/ml Total Protein (6.4-8.2) gm/dl Albumin (3.4-5.0) gm/dl Globulin (2.5-4.0) gm/dl Albumin/Globulin Ratio (0.9-2) CSF Appearance CSF Color Xanthrochromic CSF WBC (0-5) /uL CSF RBC (0-) /uL CSF Cell Count Tube # CSF Chemistry Tube # CSF Glucose (40-70) mg/dl CSF Total Protein (15-45) mg/dl 01/06/19 01/06/19 01/06/19 Range/Units 16:01 16:05 18:00 WBC (4.8-10.8) K/uL RBC (4.7-6.1) M/uL Hgb (14.0-18.0) g/dL POC Hgb 17.0 (14.0-18.0) g/dl Hct (42-52) % POC Hct 50 (42-52) % MCV (80-100) fL MCH (25-34) pg MCHC (32-36) g/dL RDW Std Deviation (36.4-46.3) fL RDW Coeff of Winifred (11.5-14.5) % Plt Count (130-400) K/uL MPV (7.4-10.4) fL Immature Gran % (Auto) % Neut % (Auto) % Lymph % (Auto) % [place] % (Auto) % Eos % (Auto) % Baso % (Auto) % Immature Gran # (Auto) (0.00-0.02) K/uL Neut # (Auto) (1.4-6.5) K/uL Lymph # (Auto) (1.2-3.4) K/uL [place]lands # (Auto) (0.11-0.59) K/uL Eos # (Auto) (0-0.5) K/uL Baso # (Auto) (0-0.2) K/uL PT (9.0-12.0) Seconds INR (0.9-1.1) APTT (21.0-31.0) Seconds PTT Ratio POC Sodium 144 (135-144) mEq/L Sodium 144 (136-145) mmol/L POC Potassium 3.8 (3.3-5.0) mEq/L Potassium 3.9 (3.5-5.1) mmol/L POC Chloride 104 (101-112) mEq/L Chloride 110 H (98-107) mmol/L Carbon Dioxide 27 (21-32) mmol/L POC Total CO2 24 (24-31) mEq/l Anion Gap 7.0 (3-11) POC Anion Gap 20.0 (16-25) mmol/L POC BUN 18 (7-18) mg/dl BUN 19 H (7-18) mg/dl Creatinine 1.00 (0.6-1.4) mg/dl POC Creatinine 0.9 (0.6-1.3) mg/dl Est Cr Clr Drug Dosing 62.4 ml/min Est GFR ( Amer) 86.8 Est GFR (Non-Af Amer) 74.9 BUN/Creatinine Ratio 18.6 (10-20) Glucose 111 H (70-99) mg/dl POC Glucose (70-99) POC Glucose (other) 117 H (70-99) mg/dl Calcium 9.2 (8.5-10.1) mg/dl POC Ioniz Calcium Shane 1.22 (1.12-1.32) mmol/l Magnesium 1.9 (1.8-2.4) mg/dl Total Bilirubin 1.3 H (0.2-1) mg/dl AST 27 (15-37) U/L ALT 28 (12-78) U/L Alkaline Phosphatase 75 (45-117) U/L CK-MB (CK-2) < 1.0 (0.5-3.6) ng/ml Troponin I 0.016 (0-0.045) ng/ml Total Protein 6.9 (6.4-8.2) gm/dl Albumin 3.8 (3.4-5.0) gm/dl Globulin 3.1 (2.5-4.0) gm/dl Albumin/Globulin Ratio 1.2 (0.9-2) CSF Appearance CLEAR CSF Color COLORLESS Xanthrochromic NONE CSF WBC 0 (0-5) /uL CSF RBC 0 (0-) /uL CSF Cell Count Tube # 3 CSF Chemistry Tube # 1 CSF Glucose 63 (40-70) mg/dl CSF Total Protein 54.5 H (15-45) mg/dl Imaging Data Radiologist's Impression: SINGLE VIEW CHEST CLINICAL HISTORY: Dizziness. FINDINGS: An AP, portable, upright chest radiograph is compared to study dated 08/26/2018. The examination is degraded by portable technique and patient rotation. The cardiomediastinal silhouette is unremarkable, noting atherosclerotic calcification of the thoracic aorta. There is mild bibasilar atelectasis. The lungs and pleural spaces are otherwise clear. No pneumothorax i s seen. The skeletal structures are osteopenic. The bony thorax is grossly intact. There is chronic widening at the right acromioclavicular joint. Arthritic change is seen in the shoulders. IMPRESSION: No active disease in the chest. Electronically signed by: David Meredith M.D. 01/06/2019 4:[address] ANGIOGRAPHY OF THE NECK WITH CONTRAST CLINICAL HISTORY: Headache. COMPARISON STUDY: No previous studies for comparison. Technique: CT angiography of the carotid and vertebral arteries was obtained using BlizuuraZoopla 320 IV and 3D reconstruction on an independent workstation. NASCET criteria was utilized. Automated exposure control was utilized for the study. A dose lowering technique was utilized adhering to the principles of ALARA. CT DOSE: 1037.51 mGy.cm Findings: The left vertebral artery is dominant. There is mild plaque within the left vertebral artery without evidence for stenosis. There is no dissection within this vessel. The right vertebral artery is somewhat diminutive. There is extensive atherosclerotic plaque within the proximal right vertebral artery with suspected severe stenosis. There is mild plaque within the bilateral common carotid and internal carotid arteries without hemodynamically significant stenosis. There is at least moderate stenosis at the origin of the left external carotid artery. The CTA of the head will be reported separately. There is no cervical lymphadenopathy. Lung apices are clear. There is no cervical spine fracture. IMPRESSION: 1. No significant stenosis within the bilateral common carotid or internal carotid arteries. 2. Moderate stenosis of the proximal left external carotid artery. 3. Dominant, patent left vertebral artery. Severe stenosis at the origin of the right vertebral artery. Electronically signed by: Tay James M.D. 01/06/2019 5:[address] ANGIOGRAM OF THE BRAIN CLINICAL HISTORY: Headache. COMPARISON STUDY: Unenhanced CT of the brain performed concurrently on 01/06/2019. TECHNIQUE: Following the IV administration of 118 cc of Optiray 320, CT ang iogram of the brain was performed from the skull base to the vertex. Images are reviewed in the axial, sagittal, and coronal planes. 3-D MIPS images are created and assessed. IV contrast was administered without complication. A dose lowering technique was utilized adhering to the principles of ALARA. FINDINGS: Brain parenchyma: There is age-related involutional change noting mild subcortical and periventricular microangiopathic disease. There is no hemorrhage, mass effect, or evidence of acute territorial ischemia by CT criteria. There is no evidence of enhancing mass lesion on the angiogram phase images. No extra-axial fluid collection is seen. Cruz-white matter differentiation is preserved. Ventricles, sulci, and cisterns: Prominent secondary to involutional change. CT angiogram of the brain: There is atherosclerotic calcification of the cavernous carotid and vertebral arteries. The telida of Kim is developmentally complete. The internal carotid arteries are widely patent, as are the anterior and middle cerebral arteries. The vertebrobasilar system and posterior cerebral arteries are widely patent. The left vertebral artery is dominant. There is no aneurysm, high-grade stenosis, or focal vessel cutoff identified throughout the intracranial circulation. Dural sinuses: Clear as visualized. Orbits: The bony orbits are intact. The orbital contents are normal as visual ized, noting bilateral ocular lens implants. Sinuses and mastoids: There is evidence of previous paranasal sinus surgery. Trace mucosal thickening is noted in the ethmoid resection cavity and the fro ntal sinuses. There is also trace mucosal thickening in the right maxillary antrum. Minimal fluid is seen within the right sphenoid sinus. There is a trace left mastoid effusion. The right mastoid air cells are well pneumatized. 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 No acute calvarial abnormality is seen. IMPRESSION: 1. There is no hemorrhage, mass effect, or evidence of acute territorial ischemia by CT criteria on this angiographic phase examination. 2. Unremarkable CT angiogram of the brain. Electronically signed by: David Meredith M.D. 01/06/2019 5:[address] OF THE HEAD WITHOUT CONTRAST CLINICAL HISTORY: Stroke evaluation. Headache. COMPARISON STUDY: No previous studies for comparison. TECHNIQUE: Helical axial images of the head were obtained without IV contrast. Automated exposure control was utilized for the study. A dose lowering technique was utilized adhering to the principles of ALARA. FINDINGS: No acute intracranial hemorrhage, midline shift or mass effect is present. Ventricular system is normal for age. Basilar cisterns are patent. There are no extra-axial collections. White matter hypodensity suggests small vessel disease. There is mild bilateral basal ganglia calcification. There are no findings to suggest acute dural sinus thrombosis or acute territorial infarct. There is no calvarial fracture. 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 There are postoperative findings within the sinuses. There is mild sinus mucosal thickening. There is no evidence for acute sinusitis. IMPRESSION: No acute intracranial findings. Electronically signed by: Tay James M.D. 01/06/2019 4:55 PM ECG Data Attestation: I personally reviewed and interpreted this ECG as follows: Indication: other (headache) Rate (beats per minute): 54 Rhythm: sinus bradycardia Findings: no ST depression and no ST elevation Blood Pressure Blood Pressure Findings: Elevated blood pressure MDM Narrative This is a 73-year-old male who presents emergency department complaining of severe headache and neck pain. The patient is unable to talk about his symptoms to me and appears acutely confused. The patient's is also in agreement that he is confused. He was sent in from the primary care physician's office and does have an elevation in his white blood cell count. Based on the patient's story he was sent for a CAT scan of the head as well as CTA of the head and neck. Again using shared medical decision making both patient and his the decision was made to obtain a lumbar puncture. This was done by HARIKA Man, please see her notes. The patient was given a normal saline bolus, Tylenol, meclizine. He was also given Decadron and magnesium. His CSF does not show any evidence of infection however he was given Rocephin and vancomycin prophylactically. Due to the patient's altered mental status I did discuss the case with the hospitalist service who agreed to admit the patient. Impression & Plan Headache, Altered mental status Discharge Plan Visit Data Chief Complaint: Nausea Stated Complaint: REF BY JIMENA MURRAY, CHEST HEAVINESS, NAUSEA ED Provider: Memo Bartholomew Discharge Problem: Headache, Altered mental status Discharge Instructions Interventions: ED Discharge Assessment Last Done: 01/06/19 19:16 Discharge Problem: Headache Qualifiers: Headache type: unspecified Headache chronicity pattern: unspecified pattern Intractability: not intractable Qualified Code(s): R51 - Headache Altered mental status Qualifiers: Altered mental status type: unspecified Qualified Code(s): R41.82 - Altered mental status, unspecified The scribe's documentation has been prepared under my direction and personally reviewed by me in its entirety. I confirm that the note above accurately reflects all work, treatment, procedures, and medical decision making performed by me.
[2019-01-06] MEDS ORDERED: ACETAMINOPHEN 325 MG TAB PO PRN (20:09)
[2019-01-06] MEDS ORDERED: GLUCOSE 10 TABS/TUBE PO PRN (20:09)
[2019-01-06] MEDS ORDERED: CARBOHYDRATES FOR HYPOGLYCEMIA PO PRN (20:09)
[2019-01-06] MEDS ORDERED: ONDANSETRON INJ 2 MG/ML 2 ML VIAL IV PRN (20:09)
[2019-01-06] MEDS ORDERED: GLUCOSE 40% GEL 15 GM TUBE PO PRN (20:09)
[2019-01-06] MEDS ORDERED: DEXTROSE 50% 50 ML SYRINGE IV PRN (20:09)
[2019-01-06] MEDS ORDERED: MAGNESIUM HYDROXIDE SUSP 30 ML UDC PO PRN (20:09)
[2019-01-06] MEDS ORDERED: TRAMADOL HCL 50 MG TABLET PO PRN (20:09)
[2019-01-06] MEDS ORDERED: VANCOMYCIN HCL 1,000 MG in SODIUM CHLORIDE 0.9% 250 ML IV SCH (20:09)
[2019-01-06] MEDS ORDERED: NITROGLYCERIN SL 0.4 MG/TAB TAB SL SCH (20:09)
[2019-01-06] MEDS ORDERED: FLUTICASONE PROPIONATE NA SPR 16 GM BTL NAE PRN (20:09)
[2019-01-06] MEDS ORDERED: GLUCAGON FOR INJ 1 MG VIAL SQ PRN (20:09)
[2019-01-06] MEDS ORDERED: LISINOPRIL 20 MG TAB PO SCH (21:00)
[2019-01-06] MEDS ORDERED: VANCOMYCIN HCL 750 MG in SODIUM CHLORIDE 0.9% 250 ML IV ONE (21:30)
[2019-01-06] MEDS: NSS + 20MEQ KCL 20 MEQ/1,000 ML BAG IV SCH (21:59)
[2019-01-06] MEDS: DEXAMETHASONE SOD PHOSPHATE 4 MG in SYRINGE 0 ML IV SCH (22:00)
[2019-01-06] MEDS: INSULIN ASPART 100 UNITS/ML 3 ML PEN SC SCH (22:02)
[2019-01-07] MEDS: ACYCLOVIR SOD 660 MG in DEXTROSE 5% 250 ML IV SCH ×2 (03:11→13:29)
[2019-01-07] MEDS: DEXAMETHASONE SOD PHOSPHATE 4 MG in SYRINGE 0 ML IV SCH (05:18)
[2019-01-07] MEDS ORDERED: cefTRIAXone SODIUM 1,000 MG in DEXTROSE 5% 50 ML IV SCH ×2 (07:00→19:00)
[2019-01-07 07:40] LABS: Hematocrit (blood only) 46.7 % (42-52); Hemoglobin 15.8 g/dL (14.0-18.0); Mean Corpuscular Hgb Conc 33.8 g/dL (32-36); Mean Platelet Volume 13.4 fL (7.4-10.4); Platelet Count 273 K/uL (130-400); RDW Standard Deviation 50.5 fL (36.4-46.3); Red Blood Count 4.97 M/uL (4.7-6.1); White Blood Count 22.06 K/uL (4.8-10.8)
[2019-01-07 08:18] LABS: Basophils # (auto) 0.01 K/uL (0-0.2); Immature Granulocytes # (auto) 0.07 K/uL (0.00-0.02); Immature Granulocytes % (auto) 0.3 %; Lymphocytes # (auto) 1.11 K/uL (1.2-3.4); Monocytes % (auto) 0.5 %; Neutrophils # (auto) 20.77 K/uL (1.4-6.5); Neutrophils % (auto) 94.2 %
[2019-01-07] MEDS: INSULIN ASPART 100 UNITS/ML 3 ML PEN SC SCH ×3 (08:26→17:39)
[2019-01-07] MEDS: NSS + 20MEQ KCL 20 MEQ/1,000 ML BAG IV SCH (08:30)
[2019-01-07] MEDS ORDERED: ASPIRIN 81 MG ECTAB PO SCH (09:00)
[2019-01-07] MEDS ORDERED: FEXOFENADINE HCL 180 MG TAB PO SCH (09:00)
[2019-01-07] MEDS ORDERED: METOPROLOL SUCC 50MG EXT REL TAB PO SCH (09:00)
[2019-01-07] MEDS ORDERED: ISOSORBIDE MONO EXTENDED REL 30 MG TABCR PO SCH (09:00)
[2019-01-07] MEDS ORDERED: ATORVASTATIN 40 MG TAB PO SCH (09:00)
[2019-01-07] MEDS ORDERED: NABUMETONE 500 MG TABLET PO SCH (09:00)
[2019-01-07] MEDS ORDERED: PANTOprazole 40 MG TAB PO SCH (09:00)
--- NOTE | 2019-01-07 13:21 | Hospitalist Progress Note ---
Date of Service January 07, 2019 Assessment & Plan (1) Headache: Ddx includes tension-type headache vs. migraine headache vs. Lyme vs. flu/other viral illness. Meningitis/encephalitits ruled out with LP. - Stop abx & acyclovir - Follow up Lyme titer and CSF culture - Monitor headache (2) HTN (hypertension): BP currently 150/70. - Continue home meds (3) Heart disease: Stent x1 placed 10-12 yrs ago. EKG with incomplete RBBB, seen prior. - Continue home meds. (4) GERD (gastroesophageal reflux disease): No current GERD symptoms. - Continue home meds (5) DM type 2 (diabetes mellitus, type 2): Last A1c was 6.2% in 04/2018. - Holding metformin - SSI PRN (6) Osteoarthritis: Long-standing; no new joint pains per patient. - Continue nabumetone - Tramadol PRN, states rarely takes this (7) DVT prophylaxis: SCDs Subjective 73yo M w/ hx of HTN and CAD who presents with headache and altered mental status. Reports he feels better this morning. Mild headache, but no nausea, no altered mental status. Reports no fevers/chills, chest pain, shortness of breath, abdominal pain, nausea, or vomiting. Physical Exam Vital Signs (Past 24 Hours): Last Vital Signs Temp 36.7 C 01/07/19 12:00 Pulse 63 01/07/19 12:00 Resp 18 01/07/19 12:00 BP 150/73 H 01/07/19 12:00 Pulse Ox 98 01/07/19 06:57 Constitutional: WD/WN, vitals as above Eyes: normal visual de la torre by confrontation and + anicteric sclerae Neck: normal visual inspection and trachea midline Respiratory: normal respiratory effort, lungs clear to auscultation Cardiovascular: Rate/Rhythm: regular rate and regular rhythm Gastrointestinal (Abdomen): Inspection/Auscultation: abdomen not distended Percussion/Palpation: abdomen soft; abdomen nontender Musculoskeletal: Head/Neck/Chest: normocephalic and head atraumatic Skin: no rashes, warm and dry Neurologic: awake; not confused Speech / Cognition: normal speech Psychiatric: A+Ox3, euthymic affect (1) Headache Headache chronicity pattern: unspecified pattern Headache type: unspecified Intractability: not intractable Qualified Code(s): R51 - Headache
[2019-01-07] MEDS ORDERED: VANCOMYCIN HCL 1,250 MG in SODIUM CHLORIDE 0.9% 250 ML IV SCH (15:00)
[2019-01-07 16:46] VITALS: BP 160/82; PULSE 59; TEMP 97.5; O2SAT 97
--- NOTE | 2019-01-07 17:47 | Discharge Summary ---
Date of Service January 07, 2019 Admission HPI Per Admitting Provider 73 y/o M c/o headache. Pt started to have a frontal headache on Saturday afternoon. He also noted neck stiffness, but no pain. Headache worsened yesterday and pt started to have n/v. He was unable to tolerate any PO intake. He was dizzy and unable to keep his balance well. He was seen by PCP today and noted that he was having some chest tightness as well. Pt has never had a headache like this in the past. He has no hx of neck pain. states that pt is a bit confused at times as well. Pt denies fever, SOB, abd pain, c/d, LE pain or swelling. Pt states he is not having any vision changes or dizziness while lying flat on his back. He is no longer with nausea. An LP was done in the ED and ED physician reports it as clear. Pt was started on menigitis abx and decadron. His biggest concern at present is back pain from lying flat s/p LP. He states this is not a new issue. Principal Diagnosis Headache - Possibly migraine vs. atypical flu/cold vs. Lyme Discharge Exam Constitutional WD/WN, vitals as above Eyes normal visual de la torre by confrontation and + anicteric sclerae Neck normal visual inspection and trachea midline Respiratory normal respiratory effort, lungs clear to auscultation Cardiovascular Rate/Rhythm: regular rate and regular rhythm Gastrointestinal (Abdomen) Inspection/Auscultation: abdomen not distended Percussion/Palpation: abdomen soft; abdomen nontender Musculoskeletal Head/Neck/Chest: normocephalic and head atraumatic Skin no rashes, warm and dry Neurologic awake; not confused Speech / Cognition: normal speech Psychiatric A+Ox3, euthymic affect Discharge Data Allergies Allergy/AdvReac Type Severity Reaction Status Date / Time No Known Allergies Allergy Unknown Verified 01/06/19 18:02 Consultations 01/06/19 17:23 ED Decision to Admit Stat 01/06/19 20:09 Consult Case Management - Discharge Planning Routine Ordered Studies 01/06/19 15:41 CT angio head w con Stat CT angio neck with con Stat CT head/brain wo con Stat Hospital Course (1) Headache: Ddx includes tension-type headache vs. migraine headache vs. Lyme vs. flu/other viral illness. Meningitis/encephalitits ruled out with LP. CT head did not show acute findings. 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 - Stopped abx & acyclovir the morning of 01/07 - No recurrence of headache, no dizziness, no confusion, no fever. Unlikely to be infectious etiology. - Will need to follow up Lyme titer and CSF culture. Will contact if positive. - Discuss with PCP re: migraine and if further testing needs to be done for carotid artery or vertebral artery stenosis. (2) HTN (hypertension): BP was 150/70 - 160/80. - Continue home meds - May need additional outpatient titration of HTN meds. (3) Heart disease: Stent x1 placed 10-12 yrs ago. EKG with incomplete RBBB, seen prior. - Continue home meds. (4) GERD (gastroesophageal reflux disease): No current GERD symptoms. - Continue home meds (5) DM type 2 (diabetes mellitus, type 2): Last A1c was 6.2% in 04/2018. - Held metformin - SSI PRN while inpatient (6) Osteoarthritis: Long-standing; no new joint pains per patient. - Continue nabumetone - Tramadol PRN, states rarely takes this Total Time Total Time Spent Total Time Spent (In Minutes): 35 Total Time Includes: Examination of the Patient, Discharge Planning and Medication Reconciliation Discharge Plan Discharge Items Reason For Visit: AMS Discharge Diagnosis: Headache, confusion Discharge Goals: Decrease discomfort, Diagnostic testing and Improve function Activity: Resume your previous activity Non-emergency contact: Primary Care Provider Call non-emergency contact if: you have any medication questions, your symptoms worsen and your temperature is above 101 Follow-up/Referrals: Braden Talbot MD [Primary Care Provider] - 01/13/19 11:30 am (Please, follow up at Dr. Talbot's office with his associate, Jaida HOFF, on SaturdayJanuary 13 at 11:30 am. *If you need to change this appointment, call the office at [phone].) Diet: Regular Addtl Provider Instructions: Mr. Lieberman, You were admitted for headache and confusion. We were worried you had meningitis or encephalitis, and the Emergency Department performed an LP. The spinal fluid did show any sign of infection. The final culture is still pending, but I have a very low suspicion of any infection because of how normal the cell counts were. We stopped all antibiotics and anti-virals the morning of 01/07, and you felt fine in the evening. I believe this was either an atypical presentation of the flu or a virus, or it was a migraine headache. New onset migraines would be pretty rare in a 73 year old person, but this could explain your symptoms. If the headache, nausea, and dizziness recur, please contact your PCP and discuss next steps. Lyme disease is also possible, but you have not had any tick bites, no rash (erythema migrans), fever, or joint pains, making Lyme also fairly unlikely. If any of these develop, please contact your PCP. Prescriptions: Continued metformin 500 mg tablet 500 mg PO BIDM RF: 0 atorvastatin 80 mg tablet 80 mg PO QAM RF: 0 lisinopril 20 mg tablet 20 mg PO HS RF: 0 isosorbide mononitrate 30 mg tablet extended release 24 hr 30 mg PO QAM RF: 0 metoprolol succinate 100 mg tablet extended release 24 hr 100 mg PO QAM RF: 0 fexofenadine 180 mg Tablet 180 mg PO QAM RF: 0 aspirin 81 mg Tablet,Delayed Release (Dr/Ec) 81 mg PO QAM RF: 0 tramadol 50 mg Tablet 50 mg PO DAILY PRN (Reason: Pain) RF: 0 pantoprazole 40 mg tablet,delayed release (DR/EC) 40 mg PO QAM RF: 0 nitroglycerin [Nitrostat] 0.4 mg Tablet, Sublingual 0.4 mg sublingual UD RF: 0 fluticasone propionate [Flonase Allergy Relief] 50 mcg/actuation [place],Suspension 2 spray INTRANASAL DAILY PRN (Reason: Congestion) RF: 0 nabumetone 500 mg tablet 500 mg PO QAM RF: 0 Centrum Silver Men 300-600-300 mcg Tablet 1 tab PO QAM RF: 0 Caltrate 600 + D 600 mg (1,500 mg)-800 unit Tablet,Chewable 1 tab PO BID RF: 0 Admission Data Admit Date/Time: 01/06/19 18:41 Attending Provider: Milan Ramon Admit Provider: Shantelle Sousa Primary Care Provider: Braden Talbot Other Providers: Milan Ramon Service: Tele[facility] Medical
[2019-01-09 16:08] LABS: HSV Type 1 DNA Not Detected (Not Detected); HSV Type 1&2 DNA Source CSF; HSV Type 2 DNA Not Detected (Not Detected)
== END 2019-01-07 18:10 | disposition home or self-care (01) | DRG 103 ==
LOC: ED 14:59 → 2N 18:41 → SUATTDRO 18:41 → 2N 19:16